=== PATIENT | male | born 1990 | race Caucasian/White ===

== ENCOUNTER 2023-11-18 20:43 | Emergency (ER) | payer SELFPAY ==
[~2023-11-18] VITALS: Ht 177.8 cm; Wt 78.0 kg
[2023-11-18 20:45] VITALS: BP 143/83; PULSE 97; RESP 16; TEMP 98.5; O2SAT 97
== END 2023-11-18 21:46 | disposition home or self-care (01) ==
LOC: ER 20:43
DX: F41.9 Anxiety disorder, unspecified (principal); Z59.00 Homelessness unspecified; F20.9 Schizophrenia, unspecified; Z88.8 Allergy status to other drugs, medicaments and biological substances
CPT/HCPCS: 99283